=== PATIENT | female | born 1990 | race Caucasian/White ===

== ENCOUNTER → 2024-01-18 11:03 | Outpatient (REF) | payer OTHER, SELFPAY | LOC: PNTC 11:03 | PROVIDERS: ATTENDING PHYSICIAN Obstetrics & Gynecology | DX: Z34.82 Encounter for supervision of other normal pregnancy, second trimester (principal); O35.5XX0 Maternal care for (suspected) damage to fetus by drugs, not applicable or unspecified | CPT/HCPCS: 76811 ==

== ENCOUNTER 2024-01-22 20:18 | Emergency (ER) | payer SELFPAY ==
[2024-01-22 20:21] VITALS: BP 108/57
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
[2024-01-22 21:52] VITALS: BP 128/75
== END 2024-01-22 22:01 | disposition home or self-care (01) ==
LOC: EMR 20:18
PROVIDERS: EMERGENCY PHYSICIAN Emergency Medicine; FAMILY PHYSICIAN Family Medicine
DX: S13.4XXA Sprain of ligaments of cervical spine, initial encounter (principal); V43.62XA Car passenger injured in collision with other type car in traffic accident, initial encounter; O36.8120 Decreased fetal movements, second trimester, not applicable or unspecified; Z3A.22 22 weeks gestation of pregnancy
CPT/HCPCS: 99284; 76815

== ENCOUNTER 2024-05-13 10:54 | Observation (INO) | payer OTHER, SELFPAY ==
[2024-05-13 10:58] VITALS: BP 120/78; BMI 31.2
== END 2024-05-13 12:55 | disposition home or self-care (01) ==
LOC: LDRP 10:54
PROVIDERS: ADMITTING PHYSICIAN Obstetrics & Gynecology
DX: O36.8130 Decreased fetal movements, third trimester, not applicable or unspecified (principal); Z3A.37 37 weeks gestation of pregnancy
CPT/HCPCS: 59025; G0378

== ENCOUNTER 2024-05-26 06:32 | Inpatient (IN) | payer OTHER, SELFPAY ==
[2024-05-26 06:56] VITALS: BP 111/71; BMI 29.3
[2024-05-26] MEDS: LR 1000 IV ×2 (07:20→08:14)
[2024-05-26 07:57] LABS: Hematocrit 35.1 % (37.0-47.0); Hemoglobin 11.8 g/dL (12.0-16.0); Mean Corp Hgb Conc. 33.6 g/dL (33.0-37.0); Mean Corpuscular Hgb 28.8 pg (27.0-31.0); Mean Corpuscular Volume 85.6 fL (81.0-99.0); Platelet Count 200 10^3/uL (130-400); White Blood Cell Count 8.5 10^3/uL (4.8-10.8)
[2024-05-26] MEDS: TYLENOL 1000 MG PO (08:06)
[2024-05-26] MEDS: BICITRA 30 ML PO (08:07)
[2024-05-26] MEDS: ANCEF 10 IV (08:08)
[2024-05-26 09:09] LABS: Cord ABG Comment CORD BLOOD
[2024-05-26 09:15] LABS: B.E. Cord ABG -2.8 mMOL/L; HCO3 Cord ABG 23.7 mmol/L; O2 Saturation % Cord ABG 36.5 %; PCO2 Cord ABG 46 mmHg; PO2 Cord ABG 19 mmHg; pH Cord ABG 7.32
[2024-05-26] MEDS: PITOCIN 30 UNITS/NSS 500 ML IV (09:40)
[2024-05-26] MEDS: TORADOL 15 MG IV ×3 (10:24→22:00)
[2024-05-26] MEDS: PRENATAL PLUS 1 TABLET PO (22:00)
[2024-05-27] MEDS: TORADOL 15 MG IV ×2 (04:00→10:02)
[2024-05-27 04:46] LABS: Hematocrit 29.3 % (37.0-47.0); Hemoglobin 9.7 g/dL (12.0-16.0); Mean Corp Hgb Conc. 33.1 g/dL (33.0-37.0); Mean Corpuscular Hgb 29.1 pg (27.0-31.0); Mean Platelet Volume 10.3 fL (7.4-10.4); Platelet Count 196 10^3/uL (130-400); Red Blood Cell Count 3.33 10^6/uL (4.20-5.40); Red Cell Dist. Width 15.1 % (11.5-14.5); White Blood Cell Count 14.6 10^3/uL (4.8-10.8)
[2024-05-27] MEDS: PROZAC 20 MG PO (07:50)
--- NOTE | 2024-05-27 08:06 | W.PN.ANS.POP ---
Anesthesia Post Operative
- Anesthesia Post Op Note
Vital Signs Stable-See Nursing Note: Yes
Airway Patent: Yes
Adequate Pain Control: Yes
Change in Mental Status: No
Current Postoperative Nausea & Vomiting: No
Anesthesia Complications: No
General Anesthetic Recall: No
Unplanned Admission: No
Post Op Hydration Adequate: Yes
[2024-05-27 12:22] LABS: Syphilis/T. pallidum Ab Reflex Negative (Negative)
[2024-05-27] MEDS: TYLENOL 650 MG PO ×2 (16:37→22:40)
[2024-05-27] MEDS: MOTRIN 600 MG PO ×2 (16:37→22:40)
[2024-05-27] MEDS: SENOKOT-S 1 TABLET PO (17:00)
[2024-05-27] MEDS: MYLICON 80 MG PO (17:00)
[2024-05-27] MEDS: FEOSOL 325 MG PO (20:40)
[2024-05-27] MEDS: PRENATAL PLUS 1 TABLET PO (21:03)
[2024-05-28] MEDS: TYLENOL 650 MG PO (06:20)
[2024-05-28] MEDS: MOTRIN 600 MG PO (06:20)
[2024-05-28] MEDS: PROZAC 20 MG PO (07:39)
[2024-05-28] MEDS: FEOSOL 325 MG PO (07:40)
[2024-05-28] MEDS: SENOKOT-S 1 TABLET PO (08:56)
[2024-05-28] MEDS: MYLICON 80 MG PO (08:56)
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
== END 2024-05-28 13:55 | disposition home or self-care (01) | DRG 788 ==
LOC: LDRP 06:32
PROVIDERS: ADMITTING PHYSICIAN Obstetrics & Gynecology
PROC: 10D00Z1 Extraction of Products of Conception, Low, Open Approach (ICD-10-PCS; 2024-05-26)
DX: O36.8130 Decreased fetal movements, third trimester, not applicable or unspecified (principal); Z3A.37 37 weeks gestation of pregnancy; Z37.0 Single live birth; O34.211 Maternal care for low transverse scar from previous cesarean delivery; N85.8 Other specified noninflammatory disorders of uterus
CPT/HCPCS: 88307; 36415; 82803; 85027; 86780; 86850; 86900; 86901